=== PATIENT | male | born 1945 | race Caucasian/White ===

== ENCOUNTER 2018-04-23 10:15 | Day surgery (SDC) | payer MEDICARE, OTHER ==
[2018-04-23] MEDS ORDERED: Sodium Chloride 0.9% 10 ML Syringe IV ONE (10:16)
[2018-04-23] MEDS ORDERED: Midazolam 1 MG/ML 2 ML SDV IV ONE (10:16)
[2018-04-23] MEDS ORDERED: Dexamethasone 4 MG/ML SDV IV ONE (10:16)
[2018-04-23] MEDS ORDERED: Povidone-Iodine 5% Sterile Ophth Soln 30 ML Bottle EYERT ONE ×2 (10:30→11:05)
[2018-04-23] MEDS ORDERED: Phenylephrine 10% Ophth Soln 5 ML Bot EYERT ONE (10:30)
[2018-04-23] MEDS ORDERED: Ondansetron 4 MG/2 ML SDV IVPUSH PRN (10:30)
[2018-04-23] MEDS ORDERED: Phenylephrine 10% Ophth Soln 5 ML Bot EYERT PRN (10:30)
[2018-04-23] MEDS ORDERED: Acetaminophen 325 MG Tab PO PRN (10:30)
[2018-04-23] MEDS ORDERED: Timolol Maleate 0.5% Ophth Soln 5 ML Bottle EYERT ONE (10:30)
[2018-04-23] MEDS ORDERED: Proparacaine 0.5% Ophth Soln 15 ML Bottle EYERT ONE (10:30)
[2018-04-23] MEDS ORDERED: Sodium Chloride 0.9% 10 ML Syringe FLUSH PRN (10:30)
[2018-04-23] MEDS ORDERED: Moxifloxacin 0.5% Ophth Soln 3 ML Bottle EYERT ONE (10:30)
[2018-04-23] MEDS ORDERED: Cataract Ophth Solution EYERT ONE (10:30)
[2018-04-23] MEDS ORDERED: Tetracaine HCl/PF 0.5% 4 ML Bottle EYERT ONE (11:05)
[2018-04-23] MEDS ORDERED: Lidocaine 1% 30 ML SDV INJECT ONE (11:08)
[2018-04-23] MEDS ORDERED: Balanced Salt Solution Plus Ophth Irrig 500 ML Bottle IOCULAR ONE (11:09)
[2018-04-23] MEDS ORDERED: Chondroitin Sulfate/Hyaluronate Sodium Ophth Inj 0.75 ML Syringe EYERT ONE (11:09)
[2018-04-23] MEDS ORDERED: Vancomycin 500 MG SDV EYERT ONE (11:10)
[2018-04-23] MEDS ORDERED: Apraclonidine 0.5% Ophth Soln 5 ML Bot EYERT ONE (11:20)
[2018-04-23] MEDS ORDERED: Dexamethasone/Neomycin/Polymyxin B Ophth Oint 3.5 GM Tube EYERT ONE (11:20)
--- NOTE | 2018-04-23 18:02 | OR ---
DATE: 04/23/2018 PREOPERATIVE DIAGNOSIS: Visually significant mixed cataract, right eye. POSTOPERATIVE DIAGNOSIS: Visually significant mixed cataract, right eye. PROCEDURE: Extracapsular cataract extraction with intraocular lens implant, right eye. ANESTHESIA: Topical/local MAC. COMPLICATIONS: None. INDICATION: Mr. Lyons was seen in the clinic. He is unhappy with his vision, and he has noticed a slow progressive change. His clinical examination reveals visually significant mixed cataract with both nuclear/cortical and posterior subcapsular. I explained options; I offered cataract surgery; and I explained risks including the potential for infection, retinal detachment, loss of vision, and need for additional surgery amongst others. We discussed implant options. He has requested a monofocal implant. OPERATIVE DESCRIPTION: After informed consent was obtained and the risks, benefits, and alternatives were explained, the patient was brought to the operative suite and topical anesthesia was administered. The patient was then prepped and draped in the sterile fashion, and attention was placed on the right eye. A sterile lid speculum was placed into the right eye to allow operative exposure. A full-thickness paracentesis was made in the temporal portion of the operative eye. Preservative-free lidocaine 0.1 mL was injected into the anterior chamber followed by viscoelastic. A full-thickness corneal incision was then made into the anterior chamber. A bent needle cystotome was used to create a small suzanna in the anterior capsule. The capsulorrhexis forceps was then used to create a 360-degree curvilinear capsulorrhexis. The nucleus was then removed using a phacoemulsification handpiece, and the remaining cortical material was then removed with irrigation and aspiration handpiece. Following removal of the cortical material, the capsular bag was then inspected and noted to be free of any holes or tears. Viscoelastic was then injected into the capsular bag, and the intraocular lens was inserted into the capsular bag. The viscoelastic material was then removed from both the anterior and posterior chambers and from behind the IOL. The lens and capsular bag were then reinspected. The IOL was well centered, and the capsular bag intact. The wound and paracentesis sites were inspected and hydrated with balanced saline solution. Both were found to be self-sealing. The intraocular pressure was assessed digitally and found to be within normal range. A good red reflex was noted at the completion of the procedure. No complications occurred during the operation. At the completion of the procedure, Tarah Swansonn, and Iopidine drops were placed into the operative eye. A sterile eye shield was placed over the operative eye, and the patient was transported to the postoperative recovery area having tolerated the procedure well. Postoperative instructions were given along with a postoperative appointment. The patient was advised to call with any questions or concerns. [facility] /[id number]
== END 2018-04-23 12:23 | disposition home or self-care (01) ==
LOC: DL.SDS 10:15
PROVIDERS: ATTEND Ophthalmology
DX: E11.36 Type 2 diabetes mellitus with diabetic cataract (principal); H25.811 Combined forms of age-related cataract, right eye; I10 Essential (primary) hypertension; F17.210 Nicotine dependence, cigarettes, uncomplicated; E78.2 Mixed hyperlipidemia; F32.9 Major depressive disorder, single episode, unspecified; Z79.84 Long term (current) use of oral hypoglycemic drugs; Z79.82 Long term (current) use of aspirin; Z79.899 Other long term (current) drug therapy; Z98.42 Cataract extraction status, left eye
CPT/HCPCS: 00142; 66984; A9270; C1780; J1100; J2250; J3370; J7050

== ENCOUNTER 2022-09-18 13:58 | Observation (INO) | payer MEDICARE, OTHER ==
[2022-09-18] MEDS ORDERED: Sodium Chloride 0.9% 10 ML Syringe FLUSH PRN ×2 (14:53→16:30)
[2022-09-18 14:55] LABS: RESPIRATORY SYNCYTIAL VIR NAA NEGATIVE (NEGATIVE)
[2022-09-18 14:58] LABS: CORONAVIRUS COVID-19 NAA POSITIVE (NEGATIVE)
[2022-09-18 15:47] LABS: ANION GAP 15.8 mEq/L (7-13)
[2022-09-18] MEDS ORDERED: diphenhydrAMINE 50 MG/ML SDV IV ONE (15:58)
[2022-09-18] MEDS ORDERED: Acetaminophen 325 MG Tab PO ONE (15:58)
[2022-09-18] MEDS ORDERED: Ondansetron 4 MG/2 ML SDV IVPUSH PRN (16:30)
[2022-09-18] MEDS ORDERED: Ondansetron 4 MG Tab.DIS PO PRN (16:30)
[2022-09-18] MEDS ORDERED: Docusate Sodium 100 MG Cap PO PRN (16:30)
[2022-09-18] MEDS ORDERED: 50% Dextrose in Water 50 ML Syringe IVPUSH PRN (16:33)
[2022-09-18] MEDS ORDERED: Glucagon,Human Recombinant 1 MG Vial IM PRN (16:33)
[2022-09-18] MEDS: Insulin Lispro 100 Units/ML 3 ML Vial SUBCUT SCH (21:44)
[2022-09-19] MEDS: Sodium Chloride 0.9% 1,000 ML IV SCH ×3 (03:18→20:34)
[2022-09-19] MEDS: Sodium Chloride 0.9% 10 ML Syringe FLUSH SCH ×3 (03:29→20:30)
[2022-09-19] MEDS: Nicotine 21 MG/24 Hr Patch TRDERM SCH ×2 (03:29→11:06)
[2022-09-19] MEDS: NICOTINE TRDERM SCH ×2 (03:29→20:32)
[2022-09-19 04:37] LABS: ANION GAP 11.3 mEq/L (7-13)
[2022-09-19] MEDS: Insulin Lispro 100 Units/ML 3 ML Vial SUBCUT SCH ×5 (10:41→20:42)
[2022-09-19] MEDS: Menthol 10%/Methyl Salicylate 15% 85 GM Tube TOP SCH ×2 (11:53→20:36)
[2022-09-20] MEDS: Sodium Chloride 0.9% 1,000 ML IV SCH (03:56)
[2022-09-20 07:14] LABS: ANION GAP 11.8 mEq/L (7-13)
[2022-09-20] MEDS: Nicotine 21 MG/24 Hr Patch TRDERM SCH (08:40)
[2022-09-20] MEDS: Insulin Lispro 100 Units/ML 3 ML Vial SUBCUT SCH (08:40)
[2022-09-20] MEDS: Sodium Chloride 0.9% 10 ML Syringe FLUSH SCH (08:41)
[2022-09-20] MEDS: Menthol 10%/Methyl Salicylate 15% 85 GM Tube TOP SCH (11:44)
== END 2022-09-20 11:25 | disposition home or self-care (01) ==
LOC: DL.ED 13:58 → DL.MS 16:27
PROVIDERS: ADMIT Hospitalist; ATTEND Hospitalist
DX: N18.30 Chronic kidney disease, stage 3 unspecified (principal); D63.1 Anemia in chronic kidney disease; D50.0 Iron deficiency anemia secondary to blood loss (chronic); I12.9 Hypertensive chronic kidney disease with stage 1 through stage 4 chronic kidney disease, or unspecified chronic kidney disease; E11.22 Type 2 diabetes mellitus with diabetic chronic kidney disease; E78.00 Pure hypercholesterolemia, unspecified; J44.9 Chronic obstructive pulmonary disease, unspecified; U07.1 COVID-19; R53.1 Weakness; Z79.899 Other long term (current) drug therapy; Z79.84 Long term (current) use of oral hypoglycemic drugs; Z79.82 Long term (current) use of aspirin; Z98.890 Other specified postprocedural states; Z87.891 Personal history of nicotine dependence
CPT/HCPCS: 0241U; 36415; 36430; 70450; 71045; 80048; 80053; 81001; 82272; 82947; 83735; 83880; 84484; 85025; 86850; 86900; 86901; 86920; 86922; 87086; 87088; 87186; 93005; 97161-GP; 97165-GO; 99223; 99233; 99239; 99285; A9270-GY; J3490; J7030; P9016